=== PATIENT | female | born 1990 | race Caucasian/White ===

== ENCOUNTER 2016-11-08 12:53 | Emergency (ER) | payer OTHER ==
[2016-11-08 13:37] VITALS: BP 108/62; PULSE 84; TEMP 98.5; BMI 30.4
--- NOTE | 2016-11-08 14:29 | PDOC ---
History of Present Illness - General Chief Complaint: Cold Symptoms Stated Complaint: FLU SYMPTOMS Time Seen by Provider: 11/08/16 14:26 History Source: Patient Exam Limitations: No Limitations - History of Present Illness Initial Comments: CHIEF COMPLAINT: 26 y/o afebrile female with no significant PMH c/o vomiting and diarrhea x 4 days. HISTORY OF PRESENT ILLNESS: Patient's 10 month old daughter has the same symptoms. Pt states her vomiting ended 3 days ago but she is still nauseous and continues to have diarrhea. She states she has the IUD and denies . She denies f/c, body aches, cough, runny nose, CP, SOB, abd pain. The patient admits she is able to eat and drink without vomiting. Vital signs on arrival are within normal limits. REVIEW OF SYSTEMS: GENERAL/CONSTITUTIONAL: No fever/chills. No weakness. No weight change. HEAD, EYES, EARS, NOSE AND THROAT: No change in vision. No ear pain or discharge. No sore throat. CARDIOVASCULAR: No chest pain or shortness of breath. RESPIRATORY: No cough, wheezing, or hemoptysis. GASTROINTESTINAL: +nausea, vomiting, diarrhea. No diarrhea. GENITOURINARY: No dysuria, frequency, or change in urination. MUSCULOSKELETAL: No joint or muscle swelling or pain. No neck or back pain. SKIN: No rash or easy bruising. NEUROLOGIC: No headache, vertigo, loss of consciousness, or loss of sensation. PHYSICAL EXAM: GENERAL: The patient is awake, alert, and fully oriented, in no acute distress. She is very well appearing, ambulatory, in NAD or obvious discomfort. HEAD: Normal with no signs of trauma. ENT: Pupils equal, round and reactive to light, extraocular movements intact, sclera anicteric, conjunctiva clear. Neck supple. Mucous membranes moist. LUNGS: Clear to auscultation bilaterally. Normal excursion. No respiratory distress or use of accessory muscles. CV: RRR, S1/S2, no MRG. Cap refill < 2 sec. ABDOMEN: Soft, non-distended, non-tender even to deep palpation, no hepatomegaly or splenomegaly, no masses. EXTREMITIES: Normal range of motion, no edema. NEUROLOGICAL: Normal speech, normal gait. CN II-XII grossly intact. PSYCH: Normal mood, normal affect. SKIN: Warm, dry, normal turgor, no rashes or lesions noted. Past History - Past Medical History Allergies/Adverse Reactions: Allergies Allergy/AdvReac Type Severity Reaction Status Date / Time No Known Allergies Allergy Verified 11/08/16 13:34 Home Medications: Ambulatory Orders NK [No Known Home Medication] 11/08/16 Asthma: Yes Cancer: No Cardiac Disorders: No CVA: No COPD: No CHF: No Dementia: No Diabetes: No GI Disorders: No Disorders: No HTN: No Hypercholesterolemia: No Liver Disease: No Seizures: No Thyroid Disease: No - Immunization History Td Vaccination: No TDAP Vaccination: No Immunization Up to Date: No - Psycho/Social/Smoking Cessation Hx Anxiety: No Suicidal Ideation: No Smoking Status: No Smoking History: Current every day smoker Have you smoked in the past 12 months: Yes Number of Cigarettes Smoked Daily: 2 Information on smoking cessation initiated: No Hx Alcohol Use: No Drug/Substance Use Hx: No Substance Use Type: None Hx Substance Use Treatment: No *Physical Exam - Vital Signs Last Vital Signs Temp Pulse Resp BP Pulse Ox 98.5 F 84 19 108/62 98 11/08/16 13:34 11/08/16 13:34 11/08/16 13:34 11/08/16 13:34 11/08/16 13:34 Medical Decision Making - Medical Decision Making A/P: 26 y/o afebrile female with gastroenteritis. Plan is as follows: 1. JW wray Will discharge to home with supportive care instructions. Suggested she return to the ER with any worsening or concerning symptoms. The patient verbalizes understanding of all instructions, has no further questions and is awaiting discharge. *DC/Admit/Observation/Transfer Diagnosis at time of Disposition: Gastroenteritis - Discharge Dispostion Disposition: HOME Condition at time of disposition: Good - Referrals Referrals: Corey Irvin [Primary Care Provider] - - Patient Instructions Printed Discharge Instructions: DI for Viral Gastroenteritis -- Adult, Gastroenteritis Diet Additional Instructions: Discharge Instructions: -Take over the counter Imodium for diarrhea -Follow suggested diet for your symptoms -Drink plenty of fluids and rest -Return to the ER with any worsening or concerning symptoms.
[2016-11-08] MEDS ORDERED: ONDANSETRON *ODT* 4 MG TABLET SL ONE (14:42)
[2016-11-08] MEDS ORDERED: ONDANSETRON *ODT* 4 MG TABLET ONE (14:47)
== END 2016-11-08 15:39 | disposition home or self-care (01) ==
LOC: JERFT 12:53
DX: A08.4 Viral intestinal infection, unspecified (principal); B97.89 Other viral agents as the cause of diseases classified elsewhere; F17.210 Nicotine dependence, cigarettes, uncomplicated
CPT/HCPCS: 99281-25

== ENCOUNTER 2017-11-09 07:23 | Emergency (ER) | payer OTHER ==
[2017-11-09 07:52] VITALS: BP 106/80; PULSE 68; TEMP 98.3; BMI 26.6
--- NOTE | 2017-11-09 08:39 | PDOC ---
History of Present Illness - General Chief Complaint: Pain Stated Complaint: R FOOT INJURY Time Seen by Provider: 11/09/17 08:33 History Source: Patient Exam Limitations: No Limitations - History of Present Illness Initial Comments: 11/09/17 08:38 heavy baking trays fell on to dorsum right foot yesterday. C/O pain and swelling to right foot Occurred: reports: just prior to arrival, this morning Severity: reports: moderate Pain Location: reports: lower extremity (right foot ) Method of Injury: Yes: direct blow Modifying Factors: improves with: None Loss of Consciousness: no loss of consciousness Associated Symptoms (Fall): denies symptoms Past History - Travel Traveled outside of the country in the last 30 days: No Close contact w/someone who was outside of country & ill: No - Past Medical History Allergies/Adverse Reactions: Allergies Allergy/AdvReac Type Severity Reaction Status Date / Time No Known Allergies Allergy Verified 11/09/17 07:31 Home Medications: Ambulatory Orders NK [No Known Home Medication] 11/08/16 Asthma: Yes Cancer: No Cardiac Disorders: No CVA: No COPD: No CHF: No Dementia: No Diabetes: No GI Disorders: No Disorders: No HTN: No Hypercholesterolemia: No Liver Disease: No Seizures: No Thyroid Disease: No - Immunization History Td Vaccination: No TDAP Vaccination: No Immunization Up to Date: No - Suicide/Smoking/Psychosocial Hx Smoking Status: No Smoking History: Current every day smoker Have you smoked in the past 12 months: Yes Number of Cigarettes Smoked Daily: 3 Information on smoking cessation initiated: No Hx Alcohol Use: No Drug/Substance Use Hx: No Substance Use Type: None Hx Substance Use Treatment: No Review of Systems - Review of Systems Able to Perform ROS?: Yes Is the patient limited Monegasque proficient: Yes Constitutional: Yes: Symptoms Reported, See HPI, Malaise HEENTM: No: Symptoms Reported Respiratory: No: Symptoms reported Musculoskeletal: Yes: Symptoms Reported, See HPI, Joint Pain Integumentary: Yes: Symptoms Reported, See HPI, Bruising Neurological: Yes: Symptoms reported All Other Systems: Reviewed and Negative *Physical Exam - Vital Signs Last Vital Signs Temp Pulse Resp BP Pulse Ox 98.3 F 68 20 106/80 98 11/09/17 07:43 11/09/17 07:43 11/09/17 07:43 11/09/17 07:43 11/09/17 07:43 - Physical Exam General Appearance: Yes: Nourished, Appropriately Dressed, Apparent Distress, Mild Distress HEENT: positive: ESTHER, Normal ENT Inspection, TMs Normal, Pharynx Normal Neck: positive: Supple. negative: Tender Respiratory/Chest: positive: Lungs Clear Gastrointestinal/Abdominal: positive: Soft Extremity: positive: Normal Capillary Refill, Normal Range of Motion, Swelling ( mild swelling with some bruising to dorsem of foot. No crepitus or stepoff, ). negative: Normal Inspection Integumentary: positive: Swelling, Ecchymosis Neurologic: positive: craft artist II-XII NML intact, Fully Oriented, Alert, Normal Mood/ Affect, Normal Response, Motor Strength /5 Progress Note - Progress Note Progress Note: X-ray negative for fractures or dislocations, Abdulkadir wrap and cast shoe provided, will use ibuprofen for pain relief and follow-up as needed. *DC/Admit/Observation/Transfer Diagnosis at time of Disposition: Contusion of foot, right Qualifiers: Encounter type: initial encounter Qualified Code(s): S90.31XA - Contusion of right foot, initial encounter - Discharge Dispostion Disposition: HOME Condition at time of disposition: Stable Admit: No - Referrals Referrals: Corey Irvin [Primary Care Provider] - - Patient Instructions Printed Discharge Instructions: DI for Contusion Additional Instructions: Rest, ice to area on and off for 15 minutes 4-6 times a day Avoid heavy lifting or exercise until pain and swelling is resolved or until further directed Keep area highly elevated to reduce swelling Use splints/Abdulkadir wrap as directed Followup with orthopedist in one to 2 days if not improving, if significantly improved may wait one week for followup with orthopedist May use ibuprofen 2-200 mg tablets every 6 hours as needed for pain - Post Discharge Activity Forms/Work/School Notes: Back to Work
[2017-11-09] MEDS ORDERED: IBUPROFEN 600 MG TABLET (FP) PO ONE (08:50)
== END 2017-11-09 10:01 | disposition home or self-care (01) ==
LOC: JER 07:23 → JERFT 07:23
DX: S90.31XA Contusion of right foot, initial encounter (principal); W20.8XXA Other cause of strike by thrown, projected or falling object, initial encounter; Y93.89 Activity, other specified; Y92.9 Unspecified place or not applicable; J45.909 Unspecified asthma, uncomplicated
CPT/HCPCS: 73630-TC-RT-FY; 99281-25

== ENCOUNTER 2017-11-12 17:48 | Emergency (ER) | payer OTHER ==
[2017-11-12 18:01] VITALS: BP 105/57; PULSE 81; TEMP 98; BMI 26.6
--- NOTE | 2017-11-12 18:54 | PDOC ---
History of Present Illness - General Chief Complaint: Injury Stated Complaint: RT FOOT INJURY Time Seen by Provider: 11/12/17 18:34 History Source: Patient Exam Limitations: No Limitations - History of Present Illness Initial Comments: CHIEF COMPLAINT: 27 y/o afebrile female who was seen here on 11/09 with right foot pain s/p fall of heavy objects on to foot here for an extension of her work note. HISTORY OF PRESENT ILLNESS: The patient had an xray of her right foot 3 days ago. There was no fracture. She states it still hurts to put pressure on her foot and she needs a new work note. she has a doctor's appointment scheduled for tuesday. n Vital signs on arrival are within normal limits. REVIEW OF SYSTEMS: GENERAL/CONSTITUTIONAL: No fever/chills. No weakness. No weight change. MUSCULOSKELETAL: +right foot pain. No neck or back pain. SKIN: No rash or easy bruising. NEUROLOGIC: No headache, vertigo, loss of consciousness, or loss of sensation. PHYSICAL EXAM: VITAL_SIGNS: within normal limits GENERAL_APPEARANCE: alert, cooperative, mild obvious discomfort. MENTAL_STATUS: speech clear, oriented X 3, responds appropriately to questions. NEURO: motor intact and sensory intact in injured extremity. EXTREMITIES: right foot in jolynn bandage and soft shoe from prior visit SKIN: warm, dry, good color. Past History - Past Medical History Allergies/Adverse Reactions: Allergies Allergy/AdvReac Type Severity Reaction Status Date / Time No Known Allergies Allergy Verified 11/12/17 18:01 Home Medications: Ambulatory Orders NK [No Known Home Medication] 11/08/16 Asthma: Yes Cancer: No Cardiac Disorders: No CVA: No COPD: No CHF: No Dementia: No Diabetes: No GI Disorders: No Disorders: No HTN: No Hypercholesterolemia: No Liver Disease: No Seizures: No Thyroid Disease: No - Immunization History Td Vaccination: No TDAP Vaccination: No Immunization Up to Date: No - Suicide/Smoking/Psychosocial Hx Smoking Status: No Smoking History: Never smoked Have you smoked in the past 12 months: Yes Number of Cigarettes Smoked Daily: 2 Hx Alcohol Use: No Drug/Substance Use Hx: No Substance Use Type: None Hx Substance Use Treatment: No *Physical Exam - Vital Signs Last Vital Signs Temp Pulse Resp BP Pulse Ox 98 F 81 18 105/57 99 11/12/17 17:58 11/12/17 17:58 11/12/17 17:58 11/12/17 17:58 11/12/17 17:58 Medical Decision Making - Medical Decision Making A/P: 27 y/o female here for an extension of her work note for her right foot contusion. Will give another 2 day note. Pt instructed to keep follow up appointment and return to the ER with any worsening or concerning symptoms. The patient verbalizes understanding of all instructions, has no further questions and is awaiting discharge. *DC/Admit/Observation/Transfer Diagnosis at time of Disposition: Contusion of foot, right Qualifiers: Encounter type: initial encounter Qualified Code(s): S90.31XA - Contusion of right foot, initial encounter - Discharge Dispostion Disposition: HOME Condition at time of disposition: Good - Referrals Referrals: Corey Irvin [Primary Care Provider] - (Keep appointment for tuesday) - Patient Instructions Printed Discharge Instructions: DI for Foot Pain, How To Perform RICE (Rest, Ice, Compress, Elevate) - Post Discharge Activity Forms/Work/School Notes: Back to Work
== END 2017-11-12 19:09 | disposition home or self-care (01) ==
LOC: JERFT 17:48
DX: S90.31XD Contusion of right foot, subsequent encounter (principal); W20.8XXD Other cause of strike by thrown, projected or falling object, subsequent encounter
CPT/HCPCS: 99281-25

== ENCOUNTER 2017-11-27 21:52 | Emergency (ER) | payer OTHER ==
[2017-11-27 22:06] VITALS: BP 110/56; PULSE 74; TEMP 98.5; BMI 26.6
--- NOTE | 2017-11-28 00:29 | PDOC ---
History of Present Illness - General Chief Complaint: Ear Problem Stated Complaint: EAR PROBLEM Time Seen by Provider: 11/28/17 00:22 - History of Present Illness Initial Comments: 27-year-old female with past medical history of asthma complains of right ear pain 1 week. She states she has a temperature at home of 100 over the last day. No other symptoms no other complaints. 11/28/17 00:25 Past History - Past Medical History Allergies/Adverse Reactions: Allergies Allergy/AdvReac Type Severity Reaction Status Date / Time No Known Allergies Allergy Verified 11/27/17 22:06 Home Medications: Ambulatory Orders Cetirizine HCl/Pseudoephedrine [Zyrtec-D Tablet] 1 each PO DAILY #30 tab.er.12h 11/28/17 Asthma: Yes Cancer: No Cardiac Disorders: No CVA: No COPD: No CHF: No DVT: No Dementia: No Diabetes: No GI Disorders: No Disorders: No HTN: No Hypercholesterolemia: No Liver Disease: No Seizures: No Thyroid Disease: No - Immunization History Td Vaccination: No TDAP Vaccination: No Immunization Up to Date: No - Suicide/Smoking/Psychosocial Hx Smoking Status: No Smoking History: Current every day smoker Have you smoked in the past 12 months: Yes Number of Cigarettes Smoked Daily: 4 Information on smoking cessation initiated: Yes 'Breaking Loose' booklet given: 11/27/17 Hx Alcohol Use: No Drug/Substance Use Hx: No Substance Use Type: None Hx Substance Use Treatment: No Review of Systems - Review of Systems Comments:: GENERAL/CONSTITUTIONAL: [+ fever no chills. No weakness. No weight change.] HEAD, EYES, EARS, NOSE AND THROAT: [No change in vision. + ear pain no discharge. No sore throat.] CARDIOVASCULAR: [No chest pain or shortness of breath.] RESPIRATORY: [No cough, wheezing, or hemoptysis.] GASTROINTESTINAL: [No nausea, vomiting, diarrhea or constipation. No rectal bleeding.] GENITOURINARY: [No dysuria, frequency, or change in urination.] MUSCULOSKELETAL: [No joint or muscle swelling or pain. No neck or back pain.] SKIN AND BREASTS: [No rash or easy bruising.] NEUROLOGIC: [No headache, vertigo, loss of consciousness, or loss of sensation.] PSYCHIATRIC: [No depression or anxiety.] ENDOCRINE: [No increased thirst. No abnormal weight change.] HEMATOLOGIC/LYMPHATIC: [No anemia, easy bleeding, or history of blood clots.] ALLERGIC/IMMUNOLOGIC: [No hives or skin allergy. No latex allergy.] 11/28/17 00:26 *Physical Exam - Vital Signs Last Vital Signs Temp Pulse Resp BP Pulse Ox 98.5 F 74 18 110/56 96 11/27/17 22:04 11/27/17 22:04 11/27/17 22:04 11/27/17 22:04 11/27/17 22:04 - Physical Exam Comments: GENERAL: [The patient is awake, alert, and fully oriented, in no acute distress. ] HEAD: [Normal with no signs of trauma.] ENT: [Ears normal, nares patent, oropharynx clear without exudates. Moist mucous membranes.] NECK: [Normal range of motion, supple without lymphadenopathy, JVD, or masses.] LUNGS: [Breath sounds equal, clear to auscultation bilaterally. No wheezes, and no crackles.] HEART: [Regular rate and rhythm, normal S1 and S2 without murmur, rub or gallop. ] ABDOMEN: [Soft, nontender, normoactive bowel sounds. No guarding, no rebound. No masses.] EXTREMITIES: [Normal range of motion, no edema. No clubbing or cyanosis. No cords, erythema, or tenderness.] NEUROLOGICAL: [Cranial nerves II through XII grossly intact. Normal speech, normal gait.] PSYCH: [Normal mood, normal affect.] SKIN: [Warm, Dry, normal turgor, no rashes or lesions noted.] 11/28/17 00:27 Medical Decision Making - Medical Decision Making This is most likely seasonal ALLERGIES and nasal congestion. Prescriber decongestant and have her follow-up with her primary care provider 11/28/17 00:27 *DC/Admit/Observation/Transfer Diagnosis at time of Disposition: Seasonal allergies - Discharge Dispostion Disposition: HOME Condition at time of disposition: Stable Decision to Admit order: No - Referrals Referrals: Corey Irvin [Primary Care Provider] - - Patient Instructions Printed Discharge Instructions: Allergic Rhinitis Additional Instructions: I prescribed a decongestant which should help with your ear congestion. On examination today in the emergency room you have no indication of infection which will require an antibiotic. Return to the emergency room if your symptoms worsen or go unresolved. In the meantime he should follow up with your primary care provider in next 1-2 days. - Post Discharge Activity
== END 2017-11-28 01:36 | disposition home or self-care (01) ==
LOC: JER 21:52
DX: J30.2 Other seasonal allergic rhinitis (principal); J45.909 Unspecified asthma, uncomplicated; F17.210 Nicotine dependence, cigarettes, uncomplicated
CPT/HCPCS: 99281-25

== ENCOUNTER 2019-04-06 19:58 | Emergency (ER) | payer OTHER ==
[2019-04-06 20:11] VITALS: TEMP 98.5; BMI 25.9
--- NOTE | 2019-04-06 20:20 | PDOC ---
Attending Attestation - Resident Resident Name: Mayank Plascencia - ED Attending Attestation I have performed the following: I have examined & evaluated the patient, The case was reviewed & discussed with the resident, I agree w/resident's findings & plan - HPI HPI: 04/06/19 20:41 Pt comes with weakness that is generalized; she also mentions that her menses is 3 weeks late. - Physicial Exam PE: 04/06/19 20:55 Normal neuro exam. Normal reflexes and Afebrile. A+0x3 Exam normal; Lungs moving air in all miles; mucus from the upper airway with referred sounds in all lung miles. - Medical Decision Making 04/06/19 20:41 Pt has not had labs here since 2016; we will check basic labs to make sure that she is not anemic. 04/06/19 21:48 Pt will be treated with abx for an early UTI 04/06/19 23:03 Pt has a Right ovarian 2.2x1.4hemorrhagic cyst. SHe knows to return for weakness, pain in abdomen and hypotension. She knows to come back for torsion and intense RLQ Pain. 04/07/19 00:24 Patient Name: KIEL MICHAEL THIS IS A PRELIMINARY REPORT FROM [facility] DATE OF SERVICE: 2019-04-06 21:33:23 IMAGES: 34 EXAM: ULTRASOUND PELVIS TRANSVAGINAL AND ULTRASOUND COLOR DUPLEX HISTORY: 28-Year-Old Female Right Lower Quadrant Abdominal Pain Assess For Torsion. COMPARISON: None. FINDINGS: The uterus measures 7.8 x 4.1 x 5.5 cm. There is no evidence of myometrial masses. The endometrium is normal in thickness and measures 5 mm. The right ovary measures 3.6 x 2.4 x 2.2 cm. Complex heterogeneous nonspecific 2.2 x 1.4 x 1.6 cm masslike process in the right ovary most likely due to a hemorrhagic ovarian cyst and other complex ovarian cystic processes such as an endometrioma cannot be excluded. The left ovary measures 2.7 x 1.3 x 1.4 cm. There are no left ovarian masses. There is no free fluid in the pelvis. COLOR DUPLEX: There is satisfactory perfusion to both the left and right ovary with normal appearing arterial and venous spectral waveforms. IMPRESSION: No evidence of ovarian torsion. Complex heterogeneous nonspecific 2.2 x 1.4 x 1.6 cm masslike process in the right ovary most likely due to a hemorrhagic ovarian cyst and other complex ovarian cystic processes such as an endometrioma cannot be excluded. If clinically indicated follow-up outpatient [facility] consultation and Outpatient Pelvic Ultrasound may be needed to confirm resolution and exclude other less likely complex ovarian cystic processes such as an endometrioma or other benign or malignant ovarian masses.
--- NOTE | 2019-04-06 20:23 | PDOC ---
History of Present Illness - General Chief Complaint: Lightheaded Stated Complaint: POSSIBLE /DIZZINESS Time Seen by Provider: 04/06/19 20:19 History Source: Patient Exam Limitations: No Limitations - History of Present Illness Initial Comments: Pedro Hernadez is a 28 yo F w a pmh of asthma who presents to the [facility] er because she is three weeks late and she is worried that she is . Patient states she is almost never late. Patient took an at home test last week which was negative. The patient also endorses mild nausea with no emesis. Patient also states she has mild RLQ abdominal discomfort as well as left sided abdominal discomfort. The patient denies any fevers or chills. Also denies any abnormal vaginal discharge. Denies passing any clots. Denies dysuria, frequency , or urgency. PCP: Corey Irvin PSH: None reported Social Hx: Daily smoker, Denies alcohol or illicit drug usage Allergies: NKA, NKDA Past History - Past Medical History Allergies/Adverse Reactions: Allergies Allergy/AdvReac Type Severity Reaction Status Date / Time No Known Allergies Allergy Verified 04/06/19 20:11 Home Medications: Ambulatory Orders NK [No Known Home Medication] 04/06/19 Asthma: Yes Cancer: No Cardiac Disorders: No CVA: No COPD: No CHF: No DVT: No Dementia: No Diabetes: No GI Disorders: No Disorders: No HTN: No Hypercholesterolemia: No Liver Disease: No Seizures: No Thyroid Disease: No - Immunization History Td Vaccination: No TDAP Vaccination: No Immunization Up to Date: No - Psycho Social/Smoking Cessation Hx Smoking Status: No Smoking History: Current some day smoker Have you smoked in the past 12 months: Yes Number of Cigarettes Smoked Daily: 2 Information on smoking cessation initiated: No 'Breaking Loose' booklet given: 02/27/18 Hx Alcohol Use: Yes Drug/Substance Use Hx: No Substance Use Type: None Hx Substance Use Treatment: No Review of Systems - Review of Systems Able to Perform ROS?: Yes Constitutional: No: Symptoms Reported, See HPI, Chills, Diaphoresis, Fever, Loss of Appetite, Malaise, Night Sweats, Weakness, Weight Stable, Unintentional Wgt. Loss, Unexplained wgt Loss, Other HEENTM: No: Symptoms Reported, See HPI, Eye Pain, Blurred Vision, Tearing, Recent change in vision, Double Vision, Cataracts, Ear Pain, Ocular Prothesis, Ear Discharge, Nose Pain, Nose Congestion, Tinnitus, Nose Bleeding, Hearing Loss , Throat Pain, Throat Swelling, Mouth Pain, Dental Problems, Difficulty Swallowing, Mouth Swelling, Other Respiratory: No: Symptoms reported, See HPI, Cough, Orthopnea, Shortness of Breath, SOB with Exertion, SOB at Rest, Stridor, Wheezing, Productive cough, Hemoptysis, Other Cardiac (ROS): Yes: Lightheadedness. No: Symptoms Reported, See HPI, Chest Pain , Edema, Irregular Heart Rate, Palpitations, Syncope, Chest Tightness, Other ABD/GI: Yes: Nausea, Abdominal cramping. No: Abdominal Distended, Abd. Pain w/ defecation, Constipated, Diarrhea, Difficulty Swallowing, Poor Appetite, Poor Fluid Intake, Rectal Bleeding, Vomiting, Indigestion, Tarry Stools : No: Burning, Dysuria, Discharge, Flank Pain, Hematuria, Incontinence, Pain Musculoskeletal: No: Back Pain, Gout, Joint Pain, Joint Swelling, Muscle Pain, Muscle Weakness, Neck Pain, Joint Stiffness Integumentary: No: Symptoms Reported, See HPI, Bruising, Change in Color, Change in Hair/Nails, Dryness, Erythema, Flushing, Lesions, Lumps, Pallor, Pruritus, Rash, Sweating, Other Neurological: Yes: Weakness. No: Symptoms reported, See HPI, Headache, Numbness , Paresthesia, Pre-Existing Deficit, Seizure, Tingling, Tremors, Unsteady Gait, Ataxia, Dizziness, Other Psychiatric: No: Anxiety, Depression, Frequent Crying, Stressors, Sleep Pattern Change, Emotional Problems, Mood Swings, Change in Appetite, Other Endocrine: No: Symptoms Reported, See HPI, Excessive Sweating, Flushing, Intolerance to Cold, Intolerance to Heat, Increased Hunger, Increased Thirst, Increased Urine, Unexplained Weight Gain, Unexplained Weight Loss, Change in Weight, Other Hematologic/Lymphatic: No: Symptoms Reported, See HPI, Anemia, Blood Clots, Easy Bleeding, Easy Bruising, Bleeding Diathesis, Lymph Node Abnormalities, Swollen Glands, Other *Physical Exam - Vital Signs Last Vital Signs Temp Pulse Resp BP Pulse Ox 98.5 F 81 16 98/66 98 04/06/19 20:08 04/06/19 20:08 04/06/19 20:08 04/06/19 20:08 04/06/19 20:08 - Physical Exam General Appearance: Yes: Nourished, Appropriately Dressed. No: Apparent Distress HEENT: positive: Normal ENT Inspection, Normal Voice Neck: positive: Supple. negative: Decreased range of motion Respiratory/Chest: positive: Lungs Clear, Normal Breath Sounds. negative: Respiratory Distress Cardiovascular: positive: Regular Rhythm, Regular Rate, S1, S2 Vascular Pulses: Dorsalis-Pedis (R): 2+, Doralis-Pedis (L): 2+ Female Pelvic Exam: positive: normal external exam, cervical os closed, normal adnexa, normal size ovaries. negative: CMT, discharge, lesions, adnexal tenderness, vaginal bleeding Gastrointestinal/Abdominal: positive: Normal Bowel Sounds, Soft. negative: Distended, Guarding, Rebound, Tenderness Rectal Exam: positive: deferred Lymphatic: negative: Adenopathy Musculoskeletal: positive: Normal Inspection. negative: CVA Tenderness Extremity: positive: Normal Capillary Refill, Normal Inspection, Normal Range of Motion Integumentary: positive: Normal Color, Dry, Warm Neurologic: positive: Fully Oriented, Alert, Normal Mood/Affect, Normal Response , Motor Strength 5/5, Respond to painful stimul. negative: Confused, Disoriented ED Treatment Course - LABORATORY CBC & Chemistry Diagram: 04/06/19 20:55 04/06/19 20:55 - RADIOLOGY Radiograph Interpretation: TVUS: Right lower quadrant pain. Rule out torsion Pelvis ultrasound, transvaginal The uterus is anteverted measuring 7.8 x 2 cm in sagittal and AP dimension. An intrauterine device is present in satisfactory position. Endometrial stripe is within normal limits in thickness measuring 4.5 mm. There are couple of tiny nabothian cysts in the cervix Right ovary measures 3.6 x 2.4 cm with an isoechoic density measuring 2.2 x 1.4 cm that demonstrates peripheral vascular flow in that may represent a hemorrhagic corpus luteum cyst. Normal vascular flow on the rest of the right ovary, arterial and venous. Normal-appearing left ovary measuring 2.8 x 1.3 cm with normal vascular flow, arterial and venous There is no free fluid in the cul-de-sac. Impression: IUD in place with normal thickness of the endometrial stripe. Findings suggestive of a hemorrhagic corpus luteum cyst in the right ovary measuring 2.2 x 1.4 cm. Normal vascular flow in both ovaries without evidence of torsion. Medical Decision Making - Medical Decision Making Pedro Hernadez is a 28 yo F w a pmh of asthma who presents to the [facility] er because she is three weeks late and she is worried that she is . Patient states she is almost never late. Patient took an at home test last week which was negative. The patient also endorses mild nausea with no emesis. Patient also states she has mild RLQ abdominal discomfort as well as left sided abdominal discomfort. The patient denies any fevers or chills. Also denies any abnormal vaginal discharge. Denies passing any clots. Denies dysuria, frequency , or urgency. Vital Signs Temp Pulse Resp BP Pulse Ox 98.5 F 81 16 98/66 98 04/06/19 20:08 04/06/19 20:08 04/06/19 20:08 04/06/19 20:08 04/06/19 20:08 DDx IBNLT: - IUP vs ectopic, electrolyte/metabolic disturbance, Arrhythmia, ovarian cyst, dehydration, anemia, UTI/Pylo Plan: Labs, Urine, EKG, TVUS, IV hydration, analgesia, anti-emetics, re-assess. EKG: NS rate of 62, narrow complexes, normal axis, no hypertrophy, no ST elevations or depressions, no Q waves, no Delta waves, no abnormal TWI's Labs: Cbc normal. Urine: Unremarkable TVUS: right small hemorrhagic luteal cyst which is likely causing the patient's pain Re-assessment: Patient feels well and requests to be discharged. Disposition: Home with PCP fu and return precautions. - Patient handed copy of her US read and instructed to follow up about it with her PCP. Discharge - Discharge Information Problems reviewed: Yes Clinical Impression/Diagnosis: Abdominal pain, Corpus luteum cyst hemorrhage Condition: Fair Disposition: HOME - Admission No - Follow up/Referral Referrals: Linda Madison MD [Staff Physician] - - Patient Discharge Instructions Patient Printed Discharge Instructions: DI for Ovarian Cyst Additional Instructions: You came into the ER with right lower abdominal pain. We did an ultrasound which showed that you have a small hemorrhagic luteal cyst which is likely causing your pain. If you notice any blood out of your vagina you must come back immediately to make sure you are not bleeding too much. You were given a copy of your ultrasound. Please discuss this with your doctor in the next 10 days. Please make sure to follow up with both your primary care doc and an OB doc to make sure you are feeling well and getting better. Come back to the ER immediately if your pain worsens or you have any other new or worsening concerns. Thank you for coming to the [place] ER. We hope you feel better soon! Print Language: GERMAN - Post Discharge Activity
[2019-04-06] MEDS ORDERED: SODIUM CHLORIDE 0.9% 500 ML INFUS.BAG IV ONE (20:24)
[2019-04-06] MEDS ORDERED: ONDANSETRON 4 MG/2 ML VIAL IVPUSH ONE (20:25)
[2019-04-06] MEDS ORDERED: ACETAMINOPHEN 325 MG TABLET (FP) PO ONE (20:25)
[2019-04-06] MEDS ORDERED: ONDANSETRON 4 MG/2 ML VIAL ONE (20:35)
[2019-04-06] MEDS ORDERED: ACETAMINOPHEN 325 MG TABLET (FP) ONE (20:35)
[2019-04-06 21:04] LABS: BASO % 1.1 % (0-2.0); EOS % 0.6 % (0-4.5); HEMATOCRIT 41.4 % (32.4-45.2); HEMOGLOBIN 13.5 GM/dL (10.7-15.3); LYMPH % 26.4 % (8-40); MCH 28.4 pg (25.7-33.7); MCHC 32.6 g/dl (32.0-36.0); MEAN PLT VOLUME 11.6 fl (7.5-11.1); MONO % 4.1 % (3.8-10.2); NEUT % 67.8 % (42.8-82.8); PLATELET COUNT 162 K/MM3 (134-434); RBC 4.76 M/mm3 (3.60-5.2); RDW 13.2 % (11.6-15.6); WHITE BLOOD COUNT 7.3 K/mm3 (4.0-10.0)
[2019-04-06 21:09] LABS: EPI CELLS 26.8 /HPF (0-5/HPF); HYALINE CASTS 11 /lpf (0-8); PH,URINE 5.5 (5.0-8.0); URINE APPEARANCE CLOUDY; URINE BILIRUBIN NEGATIVE (NEGATIVE); URINE COLOR DK YELLOW; URINE GLUCOSE (UA) NEGATIVE (NEGATIVE); URINE KETONE TRACE (NEGATIVE); URINE LEUK ESTERASE TRACE (NEGATIVE); URINE NITRITE NEGATIVE (NEGATIVE); URINE PROTEIN 1+ (NEGATIVE); URINE WBC 7 /hpf (0-5)
[2019-04-06 21:18] LABS: URINE RBC 0-4 /hpf (0-4)
[2019-04-06 21:31] LABS: ALBUMIN 4.3 g/dl (3.4-5.0); BILIRUBIN,TOTAL 0.4 mg/dL (0.2-1); BLOOD UREA NITROGEN 13.6 mg/dL (7-18); CALCIUM 8.7 mg/dL (8.5-10.1); CREATININE 0.7 mg/dL (0.55-1.3); POTASSIUM 3.8 mmol/L (3.5-5.1); TOT PROT 7.1 g/dl (6.4-8.2)
[2019-04-06 23:25] VITALS: BP 103/69; PULSE 75
--- NOTE | 2019-04-08 16:55 | EKG ---
Test Reason : Blood Pressure : / mmHG Vent. Rate : 062 BPM Atrial Rate : 062 BPM P-R Int : 150 ms QRS Dur : 084 ms QT Int : 400 ms P-R-T Axes : 033 065 034 degrees QTc Int : 406 ms NORMAL SINUS RHYTHM WITH SINUS ARRHYTHMIA NORMAL ECG WHEN COMPARED WITH ECG OF 06-SEP-2007 03:26, VENT. RATE HAS DECREASED Confirmed by PACO MUNOZ MD ([id number]) on 04/08/2019 4:55:34 PM Referred By: Confirmed By:PACO MUNOZ MD
== END 2019-04-06 23:23 | disposition home or self-care (01) ==
LOC: JER 19:58
PROC: 3E033GC Introduction of Other Therapeutic Substance into Peripheral Vein, Percutaneous Approach (ICD-10-PCS; principal; 2019-04-06)
PROC: 3E0337Z Introduction of Electrolytic and Water Balance Substance into Peripheral Vein, Percutaneous Approach (ICD-10-PCS; 2019-04-06)
DX: N83.10 Corpus luteum cyst of ovary, unspecified side (principal); R10.9 Unspecified abdominal pain; J45.909 Unspecified asthma, uncomplicated; F17.210 Nicotine dependence, cigarettes, uncomplicated
CPT/HCPCS: 36415; 76830-TC; 80053; 81003; 83690; 84703; 85025; 87086; 93005; 93010; 96361; 96374; 99283-25